=== PATIENT | female | born 1975 | race Caucasian/White ===

== ENCOUNTER → 2017-08-15 | Outpatient (CLI) | payer OTHER ==
[~2017-08-15] MED LIST: ALBU1AER9 INH; BUPRTAB51 PO; THY/30 PO
[2017-08-15 12:31] LABS: ALBUMIN 3.7 gm/dl (3.4-5.0); ALT/SGPT 17 U/L (12-78); BLOOD UREA NITROGEN 7 mg/dl (7-18); CALCIUM 9.4 mg/dl (8.5-10.1); CARBON DIOXIDE 28 mmol/L (21-32); CREATININE 0.85 mg/dl (0.60-1.20); GLUCOSE 89 mg/dl (70-99); POTASSIUM 4.2 mmol/L (3.5-5.1); SODIUM 137 mmol/L (136-145)
[2017-08-15 12:37] LABS: ALKALINE PHOSPHATASE 46 U/L (45-117); AST/SGOT 10 U/L (15-37); TOTAL PROTEIN 7.1 gm/dl (6.4-8.2)
[2017-08-15 13:01] LABS: T3 FREE 2.67 pg/ml (2.30-4.20)
== END | disposition home or self-care (01) ==
LOC: C.LAB 10:20
PROVIDERS: ATTEND Chiropractor
DX: M79.1 Myalgia (principal)